=== PATIENT | female | born 1970 | race Caucasian/White ===

== ENCOUNTER 2023-02-28 14:52 | Inpatient (IN) | payer OTHER, SELFPAY ==
[2023-02-28] VITALS (9 sets, daily range): BP systolic 87–139; BP diastolic 47–96; PULSE 39–49; RESP 16–18; TEMP 36.4–36.9; O2SAT 97–100; BMI 27.3; BMI 28.0
--- NOTE | 2023-02-28 15:10 | EKG12_ITS ---
Test Reason : LOW HR Blood Pressure : / mmHG Vent. Rate : 043 BPM Atrial Rate : 043 BPM P-R Int : 144 ms QRS Dur : 076 ms QT Int : 430 ms P-R-T Axes : 041 038 037 degrees QTc Int : 363 ms Marked sinus bradycardia Abnormal ECG Confirmed by CANDELARIA JOLLEY MD ([id number]), features editor BRIGITTE TATE ([id number]) on 03/02/2023 9:29:48 AM Referred By: DARA Confirmed By:CANDELARIA JOLLEY MD
--- NOTE | 2023-02-28 15:20 | ED.VIS.CHEST ---
HPI History of Present Illness Chief Complaint: Dizziness Narrative Narrative: 53-year-old female presenting with lightheadedness/dizziness, near syncope. She states that this started on Sunday. The episodes of had been intermittent. She also complains of some back pain between her shoulder blades that radiates into her face and neck area. She states this is also been coming and going. Today she states that all of the symptoms have been more constant and she has some a feeling of indigestion as well. No fevers or chills. Mild nausea without vomiting. She states she has a history of high cholesterol about a year ago but this was never followed. She does not report any cardiac history. She states is not on any chronic medications. PFSH PFS Medical History no medical history Home Medications sulfamethoxazole 800 mg-trimethoprim 160 mg tablet 1 tab PO BID ##20 08/12/16 [Rx Last Taken Unknown] Allergy/AdvReac Type Severity Reaction Status Date / Time No Known Allergies Allergy Verified 02/28/23 15:00 Social History Smoking Status: Never smoker ROS ROS ED Review of Systems ROS Unobtainable: Denies due to encephalopathy Constitutional Constitutional ED: Denies chills or fever(s) Eyes Eyes: Reports none ENT ENT ED: Denies rhinorrhea or sore throat Cardiovascular Cardiovascular: Reports as per HPI Respiratory/Chest Respiratory/Chest: Reports dyspnea and dyspnea on exertion; Denies cough Gastrointestinal Gastrointestinal: Reports nausea; Denies abdominal pain Genitourinary Genitourinary ED: Denies dysuria or hematuria Musculoskeletal Musculoskeletal: Denies arthralgias Integumentary Denies abscess or Abrasions Neurologic Neurologic: Denies headache(s) Psychiatric Psychiatric: Denies anxiety or depression EXAM Physical Exam Const Vital Signs: 02/28/23 14:55 02/28/23 15:33 02/28/23 15:36 Temperature 98.5 F Temperature Source Temporal Pulse Rate 44 L 40 L Pulse Rate [Lying] Pulse Rate [Sitting (for 1 minute prior to obtaining)] Pulse Rate [Standing (for 1 minute prior to obtaining)] Respiratory Rate 16 16 Respiratory Effort Respiratory Pattern Blood Pressure 87/47 L 97/57 L Blood Pressure [Lying] Blood Pressure [Sitting (for 1 minute prior to obtaining)] Blood Pressure [Standing (for 1 minute prior to obtaining)] Blood Pressure Mean 60 70 Blood Pressure Mean [Lying] Blood Pressure Mean [Sitting (for 1 minute prior to obtaining)] Blood Pressure Mean [Standing (for 1 minute prior to obtaining)] Pulse Ox 98 98 97 Oxygen Delivery Method Room Air Room Air Room Air 02/28/23 15:37 02/28/23 17:04 02/28/23 17:12 Temperature Temperature Source Pulse Rate 40 L Pulse Rate [Lying] 39 L Pulse Rate [Sitting (for 1 minute prior to obtaining)] 41 L Pulse Rate [Standing (for 1 minute prior to obtaining)] 40 L Respiratory Rate 16 Respiratory Effort Normal Non-Labored Respiratory Pattern Normal Blood Pressure 94/60 Blood Pressure [Lying] 96/57 L Blood Pressure [Sitting (for 1 minute prior to obtaining)] 110/65 Blood Pressure [Standing (for 1 minute prior to obtaining)] 115/63 Blood Pressure Mean 71 Blood Pressure Mean [Lying] 70 Blood Pressure Mean [Sitting (for 1 minute prior to obtaining)] 80 Blood Pressure Mean [Standing (for 1 minute prior to obtaining)] 80 Pulse Ox 99 Oxygen Delivery Method Room Air General Appearance ED: NAD; Negative for pallor HEENT Reports moist mucous membranes normocephalic and atraumatic Eyes PERRL and EOMs intact bilaterally Neck no lymphadenopathy and supple Resp normal respiratory effort and clear to auscultation bilaterally Auscultation: Negative for rales, rhonchi or wheezes Cardio regular rhythm Rate: bradycardia GI normal to inspection, nondistended, normoactive bowel sounds Extremity normal to inspection General Extremety ED: Negative for edema General Extremity: Negative for edema Neuro oriented x3 and CN's II-XII intact bilaterally Sensorium / Orientation: awake and alert Psych mental status grossly normal Skin no rashes or lesions noted General Skin Exam: Negative for jaundice or pallor Heart Score History: Moderately Suspicious ECG: Normal Age: >45 - <65 years Risk Factors: 1 or 2 Risk Factors Score: 3 MDM MDM MDM Narrative Medical decision making narrative: Patient presenting with what sounds like atypical chest pain as well as bradycardia and hypotension. This has been going on since Sunday. She has the sensation that she is going to faint. On arrival her heart rate was 44. EKG on my interpretation shows a sinus bradycardia. No ST elevation or depression. Is also having severe pain between her shoulder blades as well as pressure up to her jaw. Differential includes ACS, pneumonia, pericardial effusion, electrolyte abnormalities, dehydration, orthostatic hypotension, aortic dissection. CBC to assess white blood cell count, hemoglobin, platelets, differential. BMP to assess renal function, electrolytes, glucose, anion gap. High-sensitivity troponin delta troponin were ordered. CBC and BMP essentially unremarkable there are some mild prerenal azotemia. High-sensitivity troponin is 4. Chest x-ray on my interpretation shows no acute cardiopulmonary process. Radiologist interprets this and agree. I did obtain orthostatic vital signs and these are normal however I have been in the room several times and her blood pressure is sometimes in the 120 systolic and sometimes is in the 80s systolic. Heart rate has been pretty persistently low. The last check she was 38. I did discuss with her a CT of the chest abdomen pelvis to rule out other pathology. She was amenable. I obtained this and this is negative for acute findings. I spoke with Dr. Ivy and reviewed the EKG with him. He recommended admission for at least an echocardiogram. Patient is amenable to this. Delta troponin came back at 5. This is only changed by 1. Patient was amenable to staying in the hospital. Discussed with hospitalist for admission. Impression: 1. Hypotension 2. Bradycardia 3. Atypical chest pain Lab Data Attestation: I reviewed the patient's lab results. Labs: Laboratory Results - last 24 hr 02/28/23 02/28/23 02/28/23 15:20 15:20 17:35 WBC 6.5 RBC 4.13 L Hgb 12.0 Hct 37.0 MCV 89.6 MCH 29.1 MCHC 32.4 RDW Std Deviation 42.0 RDW Coeff of Derek 12.9 Plt Count 231 MPV 11.6 Immature Gran % (Auto) 0.200 Neut % (Auto) 68.3 Lymph % (Auto) 22.4 [place] % (Auto) 7.1 Eos % (Auto) 1.5 Baso % (Auto) 0.5 Absolute Neuts (auto) 4.5 Absolute Lymphs (auto) 1.46 Nucleated RBC % 0 Sodium 139 Potassium 3.9 Chloride 106 Carbon Dioxide 28.0 Anion Gap 5 BUN 22 H Creatinine 0.84 Estim Creat Clear Calc 67.65 Est GFR (MDRD) Af Amer 91 Est GFR (MDRD) Non-Af 75 BUN/Creatinine Ratio 26.1 H Glucose 101 Calcium 8.9 Troponin I High Sens 4 5 Radiography Diagnostic Testing: Clinical Impression(s) from Imaging Studies Chest X-Ray 02/28/23 15:45 IMPRESSION: Normal x-ray examination of the chest. Electronically Signed: Shahid Chowdhury DO at 16:47 EDT Reading Location ID and State: [address] [place] [address] Tel [phone], Service support , Chest/Abdomen/Pelvis CTA 02/28/23 16:06 IMPRESSION: 1. No evidence of aortic dissection aneurysm or stricture. 2. No acute cardiopulmonary disease. 3. Hepatomegaly with fatty infiltration. 4. Otherwise normal CT of the abdomen and pelvis. Normal contrast-enhanced CT of the chest. Normal contrast-enhanced CT of the abdomen and pelvis. Electronically Signed: Shahid Chowdhury DO at 16:52 EDT Reading Location ID and State: [address] [place] [address] Tel [phone], Service support , Discharge Plan Triage Chief Complaint: Dizziness Other Complaint: Numb/Ting ED Provider: Ramiro Gomez Dx/Rx/DC Orders Prescriptions: No Action sulfamethoxazole-trimethoprim 1 TABLET tablet 1 tab PO BID Qty: 20 0RF Primary Care Provider: Taina Zimmerman Referrals: Taina Zimmerman DO [Primary Care Provider] -
[2023-02-28 15:30] LABS: Absolute Lymphocyte Count 1.46 X10^3/uL (0.83-4.51); Absolute Neutrophil Count 4.5 X10^3/uL (2.0-7.7); Basophil# 0.03 X10^3/uL; Basophil% 0.5 % (0-1); Eosinophils% 1.5 % (0-5); Lymphocyte # 1.46 X10^3/ul (0.83-4.51); Lymphocyte % 22.4 % (19-41); Mean Corp Hgb Conc 32.4 g/dL (32-36); Mean Corpuscular Hgb 29.1 pg (27.0-32.0); Mean Corpuscular Volume 89.6 fL (81-99); Mean Platelet Vol. 11.6 fl (6.2-12.0); Monocyte# 0.46 X10^3/uL; Monocyte% 7.1 % (0-10); NRBC Flagged by Analyzer 0 % (0-5); Neutrophil # 4.45 X10^3/uL (2.7-7.7); Neutrophil % 68.3 % (47-70); Platelet Count 231 K/mm3 (150-450); RBC Distribution Width CV 12.9 % (11.6-14.6); Red Blood Count 4.13 M/mm3 (4.2-5.4); White Blood Count 6.5 K/mm3 (4.4-11.0)
[2023-02-28] MEDS: 0.9% Normal Saline 1,000 ML 1000 ML IV ×2 (15:39→17:03)
--- NOTE | 2023-02-28 15:45 | RAD_ITS ---
STUDY: X-RAY CHEST REASON FOR EXAM: Female, 53 years old. Chest pain. TECHNIQUE: Single AP portable view of the chest. COMPARISON: None. FINDINGS: The lungs are clear and expanded. There is no demonstrated pleural abnormality. Normal size heart. Normal mediastinum and shai. Normal visualized pulmonary arteries. Normal visualized aortic arch and descending thoracic aorta. Normal visualized thoracic spine. Normal visualized ribs, clavicles, and shoulders. There is no demonstrated abnormality of the visualized soft tissue structures of the upper abdomen. RAD/Chest 1 View (Portable) IMPRESSION: Normal x-ray examination of the chest. Electronically Signed: Shahid Chowdhury DO at 16:47 EDT ,
[2023-02-28 15:56] LABS: BUN 22 mg/dL (7-18); Creatinine, Serum 0.84 mg/dL (0.55-1.02); EST Glomerular Filtration Rate 75 mL/min (>60); Estimated Creatinine Clearance 67.65 ml/min; Glucose 101 mg/dL (74-106)
[2023-02-28 15:57] LABS: Anion Gap 5 (5-15); BUN/Creat Ratio 26.1 RATIO (10-20); Calcium,Total 8.9 mg/dL (8.5-10.1); Chloride 106 mmol/L (98-107); Est Glom Filt Rate - Afr Amer 91 mL/min (>60); Potassium 3.9 mmol/L (3.5-5.1); Sodium Level 139 mmol/L (136-145); Troponin-I HS (w/2H Reflex) 4 pg/mL (3.0-54.0)
--- NOTE | 2023-02-28 16:06 | CT_ITS ---
INDICATION: Lightheadedness. Dizziness. Pain between shoulder blades intermittently for 3 days. Question aortic dissection. EXAMINATION: CTA CHEST, ABDOMEN AND PELVIS WITH CONTRAST - TECHNIQUE: A CTA of the chest, abdomen, and pelvis is obtained with sagittal and coronal reconstructed MIP views. Three-dimensional surface rendered sequence of the thoracic and abdominal aorta was obtained. A radiation dose optimization technique was used for this scan. 100 mL of Isovue-370. Oral contrast: None. COMPARISON: CT the abdomen and pelvis, August 11, 2016. Chest, February 28, 2023. FINDINGS: CT CHEST: THORACIC AORTA: No atheromatous disease, no aneurysmal changes or dissection. ABDOMINAL AORTA: No aneurysm or dissection. No significant atheromatous disease. The iliac arteries are unremarkable. The intra-abdominal arteries as well as the iliac arteries are unremarkable. LUNGS: The lungs are well-expanded without acute or chronic changes. No effusions or pneumothorax. MEDIASTINUM: The thyroid gland is normal. No mediastinal or hilar adenopathy. Normal pulmonary arteries without evidence of pulmonary embolus. HEART: Heart is normal size. No pericardial effusion. No CAD. CT ABDOMEN AND PELVIS: LIVER: The liver is enlarged and mildly fatty infiltrated. There is no focal mass. GALLBLADDER: The CBD is normal. Normal gallbladder. SPLEEN: Normal. PANCREAS: No masses or inflammation. ADRENAL GLANDS: Normal. KIDNEYS AND URETERS: The kidneys both enhance appropriately. There are normal size and shape. No hydronephrosis or nephrolithiasis. No renal masses or cysts. Normal visualized ureters. STOMACH: Normal. SMALL BOWEL: No abnormal distention of the small bowel. MESENTERY: No mesenteric inflammation. No ascites. COLON: No significant diverticulosis, masses or inflammation. The colon otherwise is normal. There is a large fatty ileocecal valve. APPENDIX: The appendix is visualized and normal. IVC: Normal. RETROPERITONEUM: No retroperitoneal lymphadenopathy. PELVIC STRUCTURES: Normal bladder. Normal uterus and adnexa. No pelvic lymphadenopathy. No free air or free fluid is seen within the peritoneal cavity. SOFT TISSUES ABDOMEN: The anterior abdominal wall is normal. SOFT TISSUE CHEST: The extrathoracic soft tissues are normal. BONES: No fractures or significant degenerative disease. CT/CTA Chst, Abd, Pel W and/or WO IMPRESSION: 1. No evidence of aortic dissection aneurysm or stricture. 2. No acute cardiopulmonary disease. 3. Hepatomegaly with fatty infiltration. 4. Otherwise normal CT of the abdomen and pelvis. Normal contrast-enhanced CT of the chest. Normal contrast-enhanced CT of the abdomen and pelvis. Electronically Signed: Shahid Chowdhury DO at 16:52 EDT Reading Location ID and State: [address] [place] [address] Tel [phone], Service support ,
[2023-02-28 17:24] LABS: Reflex Troponin-HS? (from REC) Y
[2023-02-28 18:09] LABS: Troponin-I HS 5 pg/mL (3.0-54.0)
--- NOTE | 2023-02-28 18:27 | HP.PCM.HOS_ITS ---
HPI - General General Date of Admission: 02/28/23 Date of Service: 02/28/23 Chief Complaint: dizziness, lightheadedness HPI Narrative DANILO SIMMONS, is a 53 F with a PMH as outlined who presents via the ED on 02/28/2023 with a complaint of dizziness. She doesnt really follow up with a PCP. She said she has been having dizziness and back pain between her shoulder blades for 3 days prior to admission. These symptoms have been episodic. She says the pain radiates up into her neck. She denies any chest pain, palpitations, lightheadedness, nausea, vomiting or diarrhea. Review of systems is otherwise negative. Vitals in the ED were BP of 115/63, VT of 41, and was otherwise WNL. CBC and BP were unremarkable. EKG showed sinus bradycardia. She is being admitted to be managed for near syncope likely due to sinus bradycardia, and upper back pain radiating to her neck, which may possibly be an angina equivalent. [facility] Medical History no medical history Home Medications sulfamethoxazole 800 mg-trimethoprim 160 mg tablet 1 tab PO BID ##20 08/12/16 [Rx Last Taken Unknown] Allergy/AdvReac Type Severity Reaction Status Date / Time No Known Allergies Allergy Verified 02/28/23 15:00 Social History Smoking Status: Never smoker ROS Constitutional Constitutional: Reports fatigue, malaise and weakness; Denies anorexia, chills or fever(s) Eyes Eyes: Denies change in vision ENT HEENT: Denies dysphagia or headache(s) Cardiovascular Cardiovascular: Reports lightheadedness; Denies chest pain, dyspnea on exertion, edema, orthopnea, palpitations, paroxysmal nocturnal dyspnea, rapid heart rate or syncope Respiratory/Chest Respiratory/Chest: Denies cough, dyspnea, productive cough or shortness of br eath at rest Gastrointestinal Gastrointestinal: Reports dyspepsia and nausea; Denies abdominal pain, constipation, diarrhea or vomiting Genitourinary Genitourinary: Denies burning urination or dysuria Musculoskeletal Musculoskeletal: Denies arthralgias or back pain Neurologic Neurologic: Denies confusion, dizziness, focal weakness, headache(s) or syncope Psychiatric Psychiatric: Denies anxiety or depression Endocrine Endocrinology: Denies change in body appearance Hematologic/Lymphatic Hematologic/Lymphatic: Denies anemia Vital Signs Vital Signs Vital Signs: 02/28/23 14:55 02/28/23 15:33 02/28/23 15:36 Temperature 98.5 F Temperature Source Temporal Pulse Rate 44 L 40 L Pulse Rate [Lying] Pulse Rate [Sitting (for 1 minute prior to obtaining)] Pulse Rate [Standing (for 1 minute prior to obtaining)] Respiratory Rate 16 16 Respiratory Effort Respiratory Pattern Blood Pressure 87/47 L 97/57 L Blood Pressure [Lying] Blood Pressure [Sitting (for 1 minute prior to obtaining)] Blood Pressure [Standing (for 1 minute prior to obtaining)] Blood Pressure Mean 60 70 Blood Pressure Mean [Lying] Blood Pressure Mean [Sitting (for 1 minute prior to obtaining)] Blood Pressure Mean [Standing (for 1 minute prior to obtaining)] Pulse Ox 98 98 97 Oxygen Delivery Method Room Air Room Air Room Air 02/28/23 15:37 02/28/23 17:04 02/28/23 17:12 Temperature Temperature Source Pulse Rate 40 L Pulse Rate [Lying] 39 L Pulse Rate [Sitting (for 1 minute prior to obtaining)] 41 L Pulse Rate [Standing (for 1 minute prior to obtaining)] 40 L Respiratory Rate 16 Respiratory Effort Normal Non-Labored Respiratory Pattern Normal Blood Pressure 94/60 Blood Pressure [Lying] 96/57 L Blood Pressure [Sitting (for 1 minute prior to obtaining)] 110/65 Blood Pressure [Standing (for 1 minute prior to obtaining)] 115/63 Blood Pressure Mean 71 Blood Pressure Mean [Lying] 70 Blood Pressure Mean [Sitting (for 1 minute prior to obtaining)] 80 Blood Pressure Mean [Standing (for 1 minute prior to obtaining)] 80 Pulse Ox 99 Oxygen Delivery Method Room Air Weight Weight: 159 lb Body Mass Index (BMI) 27.3 Physical Exam Const alert, oriented x3 and no apparent distress General Appearance: cooperative HEENT normocephalic, head/scalp atraumatic, hearing grossly normal bilaterally and moist oral mucous membranes Mouth: oral and palatal mucosa normal Eyes PERRL and EOMs intact bilaterally Neck no lymphadenopathy, supple and no JVD Resp normal respiratory effort, no retractions, no use of accessory muscles and clear to auscultation bilaterally Cardio regular rhythm, S1 normal heart sound and S2 normal heart sound Cardio Narrative: sinus bradycardia GI normal to inspection, nondistended, normoactive bowel sounds, soft to palpation, non-tender and non-distended Extremity normal to inspection, full ROM and no clubbing, cyanosis or edema Neuro oriented x3, moves all extremities and no focal motor deficits Sensorium / Orientation: awake and alert Motor Exam: strength 5/5 throughout Psych affect normal Results Lab / Micro Data Result Diagrams: 02/28/23 15:20 02/28/23 15:20 Labs: Laboratory Results - last 24 hr 02/28/23 15:20: WBC 6.5, RBC 4.13 L, Hgb 12.0, Hct 37.0, MCV 89.6, MCH 29.1, MCHC 32.4, RDW Std Deviation 42.0, RDW Coeff of Derek 12.9, Plt Count 231, MPV 11.6, Immature Gran % (Auto) 0.200, Neut % (Auto) 68.3, Lymph % (Auto) 22.4, [place] % (Auto) 7.1, Eos % (Auto) 1.5, Baso % (Auto) 0.5, Absolute Neuts (auto) 4.5, Absolute Lymphs (auto) 1.46, Nucleated RBC % 0 02/28/23 15:20: Sodium 139, Potassium 3.9, Chloride 106, Carbon Dioxide 28.0, Anion Gap 5, BUN 22 H, Creatinine 0.84, Estim Creat Clear Calc 67.65, Est GFR (MDRD) Af Amer 91, Est GFR (MDRD) Non-Af 75, BUN/Creatinine Ratio 26.1 H, Glucose 101, Calcium 8.9, Troponin I High Sens 4 02/28/23 17:35: Troponin I High Sens 5 Radiology Impression Chest X-Ray 02/28/23 15:45 IMPRESSION: Normal x-ray examination of the chest. Electronically Signed: Shahid Chowdhury DO at 16:47 EDT Reading Location ID and State: [address] [place] [address] Tel [phone], Service support , Chest/Abdomen/Pelvis CTA 02/28/23 16:06 IMPRESSION: 1. No evidence of aortic dissection aneurysm or stricture. 2. No acute cardiopulmonary disease. 3. Hepatomegaly with fatty infiltration. 4. Otherwise normal CT of the abdomen and pelvis. Normal contrast-enhanced CT of the chest. Normal contrast-enhanced CT of the abdomen and pelvis. Electronically Signed: Shahid Chowdhury DO at 16:52 EDT Reading Location ID and State: [address] [place] [address] Tel [phone], Service support , Assessment & Plan Assessment/Plan (1) Anginal equivalent: (2) Bradycardia: PLAN: Plan #Sinus bradycardia * admitted with complaint of lightheadedness and dizziness as well as pain in b etween her shoulder blades, radiating up into her neck * Denies any history of heart disease. She does have a history of high cholesterol diagnosed in physical she had last year. She does not usually follow with a PCP. * Heart rate went as low as 39 in the ED. Heart rate was 41 at time of review. * Admit to PCU * Cycle troponins. Initial troponin was negative. 2D echo ordered for tomorrow. * I do think the pain in between her shoulder blades and radiating up to her neck qualifies as an angina equivalent. We will therefore consult cardiology to determine whether she would benefit from a stress test or would proceed to a cardiac cath in light of her angina equivalent and new onset bradycardia. * Hydrate gently with IV fluids. * Check lipid panel * * #Upper back pain likely angina equivalent * Back pain as described above. Initial troponin x2 negative. We will cycle. * P.o. aspirin 81 mg daily. Sublingual nitroglycerin as needed * #Hypotension: * Blood pressure was down in the 80s systolic when she came into the ED but it responded to fluids. * Orthostatics were negative. We will continue gentle hydration with IV fluids and monitor. * Not on any blood pressure medications. * DVT prophylaxis: Lovenox Charges/Coding Visit Charges Inpatient E&M: 74488 Init Hosp L3
[2023-02-28] MEDS: 0.9% Normal Saline 1,000 ML 125 ML IV (20:32)
[2023-02-28] MEDS: 0.9% Saline Lock 10 ML Syringe IV (20:32)
[2023-03-01 02:01] VITALS: PULSE 55
[2023-03-01] MEDS: 0.9% Normal Saline 1,000 ML 125 ML IV (04:27)
[2023-03-01 04:40] VITALS: BP 143/85; PULSE 47; RESP 18; TEMP 36.6; O2SAT 100
[2023-03-01 05:05] LABS: Absolute Lymphocyte Count 1.54 X10^3/uL (0.83-4.51); Absolute Neutrophil Count 1.9 X10^3/uL (2.0-7.7); Basophil# 0.02 X10^3/uL; Basophil% 0.5 % (0-1); Eosinophil# 0.12 X10^3/uL; Eosinophils% 3.1 % (0-5); Hematocrit 36.5 % (37-47); Hemoglobin 11.5 g/dL (12.0-15.0); Lymphocyte # 1.54 X10^3/ul (0.83-4.51); Lymphocyte % 39.2 % (19-41); Mean Corp Hgb Conc 31.5 g/dL (32-36); Mean Corpuscular Hgb 28.7 pg (27.0-32.0); Mean Platelet Vol. 11.8 fl (6.2-12.0); Monocyte# 0.36 X10^3/uL; Monocyte% 9.2 % (0-10); NRBC Flagged by Analyzer 0 % (0-5); Neutrophil # 1.89 X10^3/uL (2.7-7.7); Platelet Count 202 K/mm3 (150-450); RBC Distribution Width CV 13.2 % (11.6-14.6); RBC Distribution Width SD 43.8 fl (35.1-43.9); Red Blood Count 4.01 M/mm3 (4.2-5.4); White Blood Count 3.9 K/mm3 (4.4-11.0)
[2023-03-01 05:33] LABS: Anion Gap 5 (5-15); BUN 17 mg/dL (7-18); Calcium,Total 7.7 mg/dL (8.5-10.1); Chloride 115 mmol/L (98-107); Creatinine, Serum 0.68 mg/dL (0.55-1.02); EST Glomerular Filtration Rate 96 mL/min (>60); Est Glom Filt Rate - Afr Amer 117 mL/min (>60); Estimated Creatinine Clearance 83.57 ml/min; Glucose 108 mg/dL (74-106); Potassium 3.6 mmol/L (3.5-5.1); Sodium Level 144 mmol/L (136-145); Thyroid Stim Hormone (TSH) 9.54 uIU/mL (0.358-3.74)
--- NOTE | 2023-03-01 05:55 | ECHOD_ITS ---
Reason For Study: Bradycardia Procedure This was a 2D Doppler, Color Flow transthoracic echocardiogram. Exam performed portable in patient room. Left Ventricle Normal left ventricle. The estimated ejection fraction is 55-60 %. Right Ventricle Normal right ventricle. Normal systolic function. Atria Normal left atrium. Normal right atrium. Mitral Valve There is mild mitral annular calcification. Mild (1+) mitral valve insufficiency. Tricuspid Valve Normal tricuspid valve. Mild tricuspid valve insufficiency. Aortic Valve Normal aortic valve. Pulmonic Valve The pulmonic valve is not well visualized. Great Vessels Normal aortic root. Pericardium/Pleural No pericardial effusion. MMode/2D Measurements & Calculations LVIDd: 4.8 cm IVSd: 0.75 cm LA dimension: 3.5 cm LVIDs: 3.4 cm LVPWd: 0.62 cm RVDd: 3.2 cm FS: 28.9 % LAV(MOD-bp): 54.9 ml LA A4 area: 19.0 cm2 RA A4 area: 14.6 cm2 LAV(MOD-bp) Indexed: 30.6 ml/m2 LAV(MOD-sp2): 54.9 ml LAV(MOD-sp4): 52.3 ml Time Measurements MV dec time: 0.16 sec Doppler Measurements & Calculations MV E max brodie: 91.6 cm/sec Lat Peak E' Brodie: 16.7 cm/sec Med Peak E' Brodie: 13.5 cm/sec MV A max brodie: 84.1 cm/sec E/E' lat: 5.5 E/E' med: 6.8 MV E/A: 1.1 MV V2 max: 120.4 cm/sec MV P1/2t max brodie: 122.4 cm/sec Ao V2 max: 115.3 cm/sec MV max P.8 mmHg MV P1/2t: 64.5 msec Ao max P.3 mmHg MV V2 mean: 62.4 cm/sec MV dec slope: 555.6 cm/sec2 Ao V2 mean: 79.5 cm/sec MV mean P.9 mmHg MVA(P1/2t): 3.4 cm2 Ao mean P.9 mmHg MV V2 VTI: 26.6 cm Ao V2 VTI: 29.6 cm AV (velocity ratio): 0.93 LV V1 max: 107.3 cm/sec PA V2 max: 107.1 cm/sec TR max brodie: 293.0 cm/sec LV V1 max P.6 mmHg TR max P.3 mmHg LV V1 mean P.6 mmHg LV V1 mean: 75.0 cm/sec LV V1 VTI: 27.5 cm ECHO/Echo Complete Interpretation Summary The estimated ejection fraction is 55-60 %. Normal LV systolic function No previous echo to compare Ordering Physician: Maria Elena Guthrie Referring Physician: Taina Zimmerman M.D. Performed By: Seth Obrien RCS
--- NOTE | 2023-03-01 08:02 | PCM.PN.HOSP ---
Subjective Subjective Feeling better. Objective Data Objective Data Vital Signs: Vital Signs Temp Pulse Resp BP Pulse Ox O2 Del Method 36.6 C 47 L 18 143/85 H 100 Room Air 03/01/23 04:40 03/01/23 04:40 03/01/23 04:40 03/01/23 04:40 03/01/23 04:40 03/01/23 04:40 Oxygen Delivery Method Room Air Weight: 74.2 kg Body Mass Index (BMI) 28.0 Intake & Output: Intake and Output for Last 24 Hours 02/27/23 02/28/23 03/01/23 23:59 23:59 23:59 Intake Total 1999 989.58 / 989.58 Balance 1999 989.58 / 989.58 Lab / Micro Data Result Diagrams: 03/01/23 04:30 03/01/23 04:30 Labs: Laboratory Results - last 24 hr 02/28/23 15:20: WBC 6.5, RBC 4.13 L, Hgb 12.0, Hct 37.0, MCV 89.6, MCH 29.1, MCHC 32.4, RDW Std Deviation 42.0, RDW Coeff of Derek 12.9, Plt Count 231, MPV 11.6, Immature Gran % (Auto) 0.200, Neut % (Auto) 68.3, Lymph % (Auto) 22.4, [place] % (Auto) 7.1, Eos % (Auto) 1.5, Baso % (Auto) 0.5, Absolute Neuts (auto) 4.5, Absolute Lymphs (auto) 1.46, Nucleated RBC % 0 02/28/23 15:20: Sodium 139, Potassium 3.9, Chloride 106, Carbon Dioxide 28.0, Anion Gap 5, BUN 22 H, Creatinine 0.84, Estim Creat Clear Calc 67.65, Est GFR (MDRD) Af Amer 91, Est GFR (MDRD) Non-Af 75, BUN/Creatinine Ratio 26.1 H, Glucose 101, Calcium 8.9, Troponin I High Sens 4 02/28/23 17:35: Troponin I High Sens 5 03/01/23 04:30: WBC 3.9 L, RBC 4.01 L, Hgb 11.5 L, Hct 36.5 L, MCV 91.0, MCH 28.7, MCHC 31.5 L, RDW Std Deviation 43.8, RDW Coeff of Derek 13.2, Plt Count 202, MPV 11.8, Immature Gran % (Auto) 0.000, Neut % (Auto) 48.0, Lymph % (Auto) 39.2, [place] % (Auto) 9.2, Eos % (Auto) 3.1, Baso % (Auto) 0.5, Absolute Neuts (auto) 1.9 L, Absolute Lymphs (auto) 1.54, Nucleated RBC % 0 03/01/23 04:30: Sodium 144, Potassium 3.6, Chloride 115 H, Carbon Dioxide 24.0, Anion Gap 5, BUN 17, Creatinine 0.68, Estim Creat Clear Calc 83.57, Est GFR (MDRD) Af Amer 117, Est GFR (MDRD) Non-Af 96, BUN/Creatinine Ratio 25.0 H, Glucose 108 H, Calcium 7.7 L, TSH 9.54 H Radiography Diagnostic Testing: Radiology Impression Chest X-Ray 02/28/23 15:45 IMPRESSION: Normal x-ray examination of the chest. Electronically Signed: Shahid Chowdhury DO at 16:47 EDT Reading Location ID and State: [employer] / [place] Tel [phone], Service support , Chest/Abdomen/Pelvis CTA 02/28/23 16:06 IMPRESSION: 1. No evidence of aortic dissection aneurysm or stricture. 2. No acute cardiopulmonary disease. 3. Hepatomegaly with fatty infiltration. 4. Otherwise normal CT of the abdomen and pelvis. Normal contrast-enhanced CT of the chest. Normal contrast-enhanced CT of the abdomen and pelvis. Electronically Signed: Shahid Chowdhury DO at 16:52 EDT Reading Location ID and State: [employer] / [employer] Tel [phone], Service support , Physical Exam Const alert and no apparent distress HEENT head/scalp atraumatic, moist oral mucous membranes, oropharynx normal and dentition normal Resp normal respiratory effort, no retractions, no use of accessory muscles and clear to auscultation bilaterally Cardio regular rate, regular rhythm, S1 normal heart sound and S2 normal heart sound GI normal to inspection, nondistended, normoactive bowel sounds, soft to palpation, non-tender, non-distended and hepatosplenomegaly Extremity normal to inspection Assessment & Plan Assessment/Plan (1) Bradycardia: PLAN: Sinus bradycardia HR in 30s to 40s reviewed medication--no chronotropic medications (2) Anginal equivalent: PLAN: Upper back pain concern for anginal equivalent Troponins negative P.o. aspirin 81 mg daily. Sublingual nitroglycerin as needed Echo ordered (3) Hypotension: PLAN: Resolved Blood pressure was down in the 80s systolic when she came into the ED but it responded to fluids. Orthostatics were negative. We will continue gentle hydration with IV fluids and monitor. Not on any blood pressure medications. (4) High thyroid stimulating hormone (TSH) level: PLAN: 9.54. Free T4 was 1 and free T3 was 3. Those are within normal limits. Patient takes an ysdx-fwc-awbvdao thyroid medication which apparently has bovine thyroid hormone. She has not taken it for some time. I would not recommend any treatment for hypothyroidism at this time. PLAN: Plan DVT prophylaxis: Lovenox Charges/Coding Visit Charges Inpatient E&M: 47463 Subs Hosp L2
--- NOTE | 2023-03-01 09:30 | PCM.CONS.C ---
Documented by User: Heide TREJO, MAYA 03/01/23 09:54 Assessment & Plan Assessment/Plan (1) Bradycardia: (2) Hypotension: (3) Anginal equivalent: PLAN: Plan Patient's CTA was negative. There is no coronary calcifications noted on her CTA. Troponins were also negative x2. Patient's TSH is 9.75 today. This could be contributing to her bradycardia. Echocardiogram is pending. As long as echocardiogram is normal, recommend that she follow-up on an outpatient basis. Would recommend doing a stress test and event monitor on an outpatient basis. HPI Consult Data Date of Consult: 03/01/23 HPI Narrative HPI Narrative: DANILO SIMMONS, is a 53 F who presented to [facility] ED for dizziness, bradycardia, near syncope, back pain and back pain between her shoulder blades for 3 days prior to admission. These symptoms have been episodic. She says the pain radiates up into her neck. She denies any chest pain, palpitations, lightheadedness, nausea, vomiting or diarrhea. Chest CTA negative. Troponin negative x2. She does feel better this morning. TSH this morning is 9.75. Patient does note that she has had a sinus infection for the past 4 months that has recently cleared. She did question if she had COVID however COVID test was negative. [facility] Medical History no medical history Allergy/AdvReac Type Severity Reaction Status Date / Time No Known Allergies Allergy Verified 02/28/23 15:00 Social History Smoking Status: Never smoker ROS ROS Narrative ROS negative except what is noted in HPI Physical Exam Const alert, oriented x3 and no apparent distress General Appearance: cooperative HEENT normocephalic, head/scalp atraumatic, hearing grossly normal bilaterally and moist oral mucous membranes Mouth: oral and palatal mucosa normal Eyes PERRL and EOMs intact bilaterally Neck no lymphadenopathy, supple and no JVD Resp normal respiratory effort, no retractions, no use of accessory muscles and clear to auscultation bilaterally Cardio regular rhythm, S1 normal heart sound and S2 normal heart sound Cardio Narrative: sinus bradycardia GI normal to inspection, nondistended, normoactive bowel sounds, soft to palpation, non-tender and non-distended Extremity normal to inspection, full ROM and no clubbing, cyanosis or edema Neuro oriented x3, moves all extremities and no focal motor deficits Sensorium / Orientation: awake and alert Motor Exam: strength 5/5 throughout Psych affect normal Risk Stratification Risk Stratification Applicable: No Charges/Coding Visit Charges Office Visits / Consults: 27775 IP Consult L3 Objective Data Vital Signs: Vital Signs Temp Pulse Resp BP Pulse Ox O2 Del Method 97.8 F 47 L 18 143/85 H 100 Room Air 03/01/23 04:40 03/01/23 04:40 03/01/23 04:40 03/01/23 04:40 03/01/23 04:40 03/01/23 04:40 Oxygen Delivery Method Room Air Weight: 163 lb 9.328 oz Body Mass Index (BMI) 28.0 Intake & Output: Intake and Output for Last 24 Hours 02/27/23 02/28/23 03/01/23 23:59 23:59 23:59 Intake Total 1999 989.58 / 989.58 Balance 1999 989.58 / 989.58 Lab / Micro Data Result Diagrams: 03/01/23 04:30 03/01/23 04:30 Labs: Laboratory Results - last 24 hr 02/28/23 15:20: WBC 6.5, RBC 4.13 L, Hgb 12.0, Hct 37.0, MCV 89.6, MCH 29.1, MCHC 32.4, RDW Std Deviation 42.0, RDW Coeff of Derek 12.9, Plt Count 231, MPV 11.6, Immature Gran % (Auto) 0.200, Neut % (Auto) 68.3, Lymph % (Auto) 22.4, [place] % (Auto) 7.1, Eos % (Auto) 1.5, Baso % (Auto) 0.5, Absolute Neuts (auto) 4.5, Absolute Lymphs (auto) 1.46, Nucleated RBC % 0 02/28/23 15:20: Sodium 139, Potassium 3.9, Chloride 106, Carbon Dioxide 28.0, Anion Gap 5, BUN 22 H, Creatinine 0.84, Estim Creat Clear Calc 67.65, Est GFR (MDRD) Af Amer 91, Est GFR (MDRD) Non-Af 75, BUN/Creatinine Ratio 26.1 H, Glucose 101, Calcium 8.9, Troponin I High Sens 4 02/28/23 17:35: Troponin I High Sens 5 03/01/23 04:30: WBC 3.9 L, RBC 4.01 L, Hgb 11.5 L, Hct 36.5 L, MCV 91.0, MCH 28.7, MCHC 31.5 L, RDW Std Deviation 43.8, RDW Coeff of Derek 13.2, Plt Count 202, MPV 11.8, Immature Gran % (Auto) 0.000, Neut % (Auto) 48.0, Lymph % (Auto) 39.2, [place] % (Auto) 9.2, Eos % (Auto) 3.1, Baso % (Auto) 0.5, Absolute Neuts (auto) 1.9 L, Absolute Lymphs (auto) 1.54, Nucleated RBC % 0 03/01/23 04:30: Sodium 144, Potassium 3.6, Chloride 115 H, Carbon Dioxide 24.0, Anion Gap 5, BUN 17, Creatinine 0.68, Estim Creat Clear Calc 83.57, Est GFR (MDRD) Af Amer 117, Est GFR (MDRD) Non-Af 96, BUN/Creatinine Ratio 25.0 H, Glucose 108 H, Calcium 7.7 L, TSH 9.54 H Cardiology Labs/Tests 02/28/23 15:20: WBC 6.5, RBC 4.13 L, Hgb 12.0, Hct 37.0, MCV 89.6, MCH 29.1, MCHC 32.4, Plt Count 231, MPV 11.6, Immature Gran % (Auto) 0.200, Neut % (Auto) 68.3, Lymph % (Auto) 22.4, [place] % (Auto) 7.1, Eos % (Auto) 1.5, Baso % (Auto) 0.5, Absolute Neuts (auto) 4.5, Nucleated RBC % 0 02/28/23 15:20: Sodium 139, Potassium 3.9, Chloride 106, Carbon Dioxide 28.0, Anion Gap 5, BUN 22 H, Creatinine 0.84, Est GFR (MDRD) Af Amer 91, Est GFR (MDRD) Non-Af 75, BUN/Creatinine Ratio 26.1 H, Glucose 101, Calcium 8.9 03/01/23 04:30: WBC 3.9 L, RBC 4.01 L, Hgb 11.5 L, Hct 36.5 L, MCV 91.0, MCH 28.7, MCHC 31.5 L, Plt Count 202, MPV 11.8, Immature Gran % (Auto) 0.000, Neut % (Auto) 48.0, Lymph % (Auto) 39.2, [place] % (Auto) 9.2, Eos % (Auto) 3.1, Baso % (Auto) 0.5, Absolute Neuts (auto) 1.9 L, Nucleated RBC % 0 03/01/23 04:30: Sodium 144, Potassium 3.6, Chloride 115 H, Carbon Dioxide 24.0, Anion Gap 5, BUN 17, Creatinine 0.68, Est GFR (MDRD) Af Amer 117, Est GFR (MDRD) Non-Af 96, BUN/Creatinine Ratio 25.0 H, Glucose 108 H, Calcium 7.7 L ECHO: Pending Radiography Diagnostic Testing: Radiology Impression Chest X-Ray 02/28/23 15:45 IMPRESSION: Normal x-ray examination of the chest. Electronically Signed: Shahid Chowdhury DO at 16:47 EDT Reading Location ID and State: [facility] / [place] Tel [phone], Service support , Chest/Abdomen/Pelvis CTA 02/28/23 16:06 IMPRESSION: 1. No evidence of aortic dissection aneurysm or stricture. 2. No acute cardiopulmonary disease. 3. Hepatomegaly with fatty infiltration. 4. Otherwise normal CT of the abdomen and pelvis. Normal contrast-enhanced CT of the chest. Normal contrast-enhanced CT of the abdomen and pelvis. Electronically Signed: Shahid Chowdhury DO at 16:52 EDT Reading Location ID and State: [facility] / [place] Tel [phone], Service support , Documented by User: Dr. Jesu Ivy MD 03/01/23 15:55 Assessment & Plan Assessment/Plan (1) Bradycardia: (2) Hypotension: (3) Anginal equivalent: PLAN: Plan Patient's CTA was negative. There is no coronary calcifications noted on her CTA. Troponins were also negative x2. Patient's TSH is 9.75 today. This could be contributing to her bradycardia. Echocardiogram is pending. As long as echocardiogram is normal, recommend that she follow-up on an outpatient basis. Would recommend doing a stress test and event monitor on an outpatient basis. I examined this patient at bedside today along with the nursing staff, at bedside at time of evaluation I reviewed the cardiac evaluation here in the hospital including the EKG satellite project site monitor, imaging studies and I agree with the current cardiac care plan recommendation as per midlevel documentation Sinus bradycardia could be related to hypothyroidism I will defer to the medical team for management. We will follow-up the patient as an outpatient, at [facility] Patient stable clinically no further episodes of discomfort in the chest or the back noted. HPI Consult Data Date of Consult: 03/01/23 PFSH Medical History no medical history Allergy/AdvReac Type Severity Reaction Status Date / Time No Known Allergies Allergy Verified 02/28/23 15:00 Social History Smoking Status: Never smoker Lab / Micro Data Result Diagrams: 03/01/23 04:30 03/01/23 04:30
[2023-03-01 09:45] VITALS: BP 147/82; PULSE 52; RESP 18; TEMP 36.2; O2SAT 100
[2023-03-01] MEDS: Enoxaparin 40 MG/0.4 ML Syringe SC (09:48)
[2023-03-01 10:03] LABS: T4 Free Direct 1.04 ng/dL (0.76-1.46)
--- NOTE | 2023-03-01 10:35 | CASEMGMT ---
RN?CM?CUSTODIAN BLOOD BANK?CM?to room to meet with patient for initial transition planning/care coordination?assessment.?RN?CM?introduced self and role at [facility].? Pt voices understanding and consents to?assessment?at this time.? Pt resting in bed in no distress at this time.? @ bedside. Pt is A/O at this time and answers all questions appropriately.?? Care providers, pharmacy, and demographics verified/updated at this time. PCP: Dr Zimmerman Specialists: none Preferred Pharmacy: [facility] Retail Insurance: [employer] Prescription Benefit:?Pt states thinks she has Rx benefits. Living Will/HPOA:?Pt does not currently have LW/HCPOA and would like to complete. Tanja TORO, made aware. Pt made aware, if SW unavailable to meet w/her prior to d/c, that AD can be completed as an OP. LNOK: [place] Living Arrangements: Lives w/ and 2 adult children in 2-story home. Independent. Transportation:?Pt states drives self and states no transportation concerns at this time.? also drives. DME: ? Denies using any DME and denies needs.? HHC/SNF: No hx of either. No needs identified. Pt wishes to return home and states has no concerns with going home at time of discharge.? CM?to follow for any discharge planning/needs.? Pt voices no further concerns/needs at this time.? Advised pt to ask for?CM?if any further questions/concerns/needs arise.? Voices understanding. PLAN:??Home Jovani RICON?RN?CM
--- NOTE | 2023-03-01 14:18 | DCINST_ITS ---
Discharge Instructions Diet Discharge Diet: No restrictions Dressing / Incision Call your doctor if you observe: Dizziness and Fainting spells Follow Up Care Test Results: Test results from this visit will be discussed in further detail at your follow- up appointment, if applicable. Discharge Plan Admission Admit Date/Time: 02/28/23 19:07 Primary Reason for Your Visit: bradycardia Attending Provider: Long Brush Primary Care Provider: Taina Zimmerman Consulting Providers: Jesu Ivy ; Maria Elena Guthrie Instructions Additional Instructions / Restrictions: You had a low heart rate. It did get better without treatment. Also, no evidence of a heart attack. You TSH was elevated, but your thyroid hormones (Free T4 and free T3) were normal. You do not need treatment for your thyroid at this time. Please return to the ED if you have recurrent dizziness, fainting spells. Please follow up with cardiology for further cardiac testing. Discharge Orders/Prescriptions Referrals / Follow Up: [facility] [Provider Group] - Within 2 Weeks Taina Zimmerman DO [Primary Care Provider] - Within 2 Weeks Disposition Disposition (needs filled in before D/C Order can be placed): Home, Self Care
--- NOTE | 2023-03-01 14:22 | PCM.DC.SUM ---
Providers Date of Admission: 02/28/23 Primary Care Physician: Dr. Taina Zimmerman, Consultations 02/28/23 19:36 Consult: Cardiology Routine Consulting Provider: Jesu Ivy Reason for Consult: bradycardia EMERGENT Consult: Yes MD Notified: Yes Date Notified: 02/28/23 Time Notified: 19:09 Method of Notification: Text Reason For Visit: BRADYCARDIA, ANGINA EQUIVVALENT Diagnosis Discharge Diagnosis (1) Bradycardia: Status: Acute Code(s): R00.1 - Bradycardia, unspecified Plan: Sinus bradycardia HR in 30s to 40s reviewed medication--no chronotropic medications (2) Anginal equivalent: Status: Acute Code(s): I20.8 - Other forms of angina pectoris Plan: Upper back pain concern for anginal equivalent Troponins negative P.o. aspirin 81 mg daily. Sublingual nitroglycerin as needed Echo ordered (3) Hypotension: Status: Acute Code(s): I95.9 - Hypotension, unspecified Plan: Resolved Blood pressure was down in the 80s systolic when she came into the ED but it responded to fluids. Orthostatics were negative. We will continue gentle hydration with IV fluids and monitor. Not on any blood pressure medications. (4) High thyroid stimulating hormone (TSH) level: Status: Acute Code(s): R79.89 - Other specified abnormal findings of blood chemistry Plan: 9.54. Free T4 was 1 and free T3 was 3. Those are within normal limits. Patient takes an qpav-gfw-knxpaud thyroid medication which apparently has bovine thyroid hormone. She has not taken it for some time. I would not recommend any treatment for hypothyroidism at this time. Plan DVT prophylaxis: [facility] Hospital Course Operations None Procedures 2-D Echocardiogram Summary of Care Provided Minutes Spent on Discharge: 35 Hospital Course: 53-year-old female presents with dizziness. Patient was planing of some pain in her posterior shoulder for the preceding few days. Patient was found to be bradycardic into the 40s but actually went down into the 30s. Patient did have serial troponins that were all negative. An echocardiogram showed normal ejection fraction of around 55%. And patient's heart rate did improve into the 50s and 60s and patient otherwise is felt fine. Patient was seen by cardiology and patient did not have a myocardial infarction and they have recommended outpatient cardiac testing. Patient takes no medications other than some qfal-cfy-rgdxkbb thyroid medication which she has not taken recently. So nothing to be a reason for her bradycardia from medication standpoint. Unclear if this was more of a vagal event causing her her to have bradycardia. I did offer the patient an opportunity to stay in the hospital longer to be observed but since she is feeling better she would prefer to go home which I feel is reasonable. Patient though advised to return if she has recurrent symptoms of dizziness lightheadedness passing out or near passing out. Patient was taking ouzp-knc-mrkgfto thyroid medication which she has not taken recently. Still with the medication and looks like it has bovine thyroid extract. Patient's TSH was elevated, however her free T4 and T3 are within normal limits. Therefore, patient does not require any thyroid replacement at this time. Patient states that since she is Weight / BMI Weight Weight: 74.2 kg Body Mass Index (BMI) 28.0 ABG / Lab / Microbiology Data Result Diagrams: 03/01/23 04:30 03/01/23 04:30 Laboratory: Laboratory Results - last 24 hr 02/28/23 15:20: WBC 6.5, RBC 4.13 L, Hgb 12.0, Hct 37.0, MCV 89.6, MCH 29.1, MCHC 32.4, RDW Std Deviation 42.0, RDW Coeff of Derek 12.9, Plt Count 231, MPV 11.6, Immature Gran % (Auto) 0.200, Neut % (Auto) 68.3, Lymph % (Auto) 22.4, [place] % (Auto) 7.1, Eos % (Auto) 1.5, Baso % (Auto) 0.5, Absolute Neuts (auto) 4.5, Absolute Lymphs (auto) 1.46, Nucleated RBC % 0 02/28/23 15:20: Sodium 139, Potassium 3.9, Chloride 106, Carbon Dioxide 28.0, Anion Gap 5, BUN 22 H, Creatinine 0.84, Estim Creat Clear Calc 67.65, Est GFR (MDRD) Af Amer 91, Est GFR (MDRD) Non-Af 75, BUN/Creatinine Ratio 26.1 H, Glucose 101, Calcium 8.9, Troponin I High Sens 4 02/28/23 17:35: Troponin I High Sens 5 03/01/23 04:30: WBC 3.9 L, RBC 4.01 L, Hgb 11.5 L, Hct 36.5 L, MCV 91.0, MCH 28.7, MCHC 31.5 L, RDW Std Deviation 43.8, RDW Coeff of Derek 13.2, Plt Count 202, MPV 11.8, Immature Gran % (Auto) 0.000, Neut % (Auto) 48.0, Lymph % (Auto) 39.2, [place] % (Auto) 9.2, Eos % (Auto) 3.1, Baso % (Auto) 0.5, Absolute Neuts (auto) 1.9 L, Absolute Lymphs (auto) 1.54, Nucleated RBC % 0 03/01/23 04:30: Sodium 144, Potassium 3.6, Chloride 115 H, Carbon Dioxide 24.0, Anion Gap 5, BUN 17, Creatinine 0.68, Estim Creat Clear Calc 83.57, Est GFR (MDRD) Af Amer 117, Est GFR (MDRD) Non-Af 96, BUN/Creatinine Ratio 25.0 H, Glucose 108 H, Calcium 7.7 L, TSH 9.54 H 03/01/23 04:30: Free T4 1.04, Free T3 pg/dL 3.0 Radiography Diagnostic Testing: Radiology Impression Chest X-Ray 02/28/23 15:45 IMPRESSION: Normal x-ray examination of the chest. Electronically Signed: Shahid Chowdhury DO at 16:47 EDT Reading Location ID and State: [address] [place] [address] Tel [phone], Service support , Chest/Abdomen/Pelvis CTA 02/28/23 16:06 IMPRESSION: 1. No evidence of aortic dissection aneurysm or stricture. 2. No acute cardiopulmonary disease. 3. Hepatomegaly with fatty infiltration. 4. Otherwise normal CT of the abdomen and pelvis. Normal contrast-enhanced CT of the chest. Normal contrast-enhanced CT of the abdomen and pelvis. Electronically Signed: Shahid Chowdhury DO at 16:52 EDT Reading Location ID and State: [address] [place] [address] Tel [phone], Service support , Echocardiogram 03/01/23 05:55 Interpretation Summary The estimated ejection fraction is 55-60 %. Normal LV systolic function No previous echo to compare Ordering Physician: Maria Elena Guthrie Referring Physician: Taina Zimmerman M.D. Performed By: Seth Obrien RCS D/C Instructions Discharge Diet: No restrictions Call your doctor if you observe: Dizziness and Fainting spells Meaningful Use Info Meaningful Use Diagnoses (Choose all that apply): None applicable Discharge Plan Admission Admit Date/Time: 02/28/23 19:07 Primary Reason for Your Visit: bradycardia Attending Provider: Long Brush Primary Care Provider: Taina Zimmerman Consulting Providers: Jesu Ivy ; Mraia Elena Guthrie Instructions Additional Instructions / Restrictions: You had a low heart rate. It did get better without treatment. Also, no evidence of a heart attack. You TSH was elevated, but your thyroid hormones (Free T4 and free T3) were normal. You do not need treatment for your thyroid at this time. Please return to the ED if you have recurrent dizziness, fainting spells. Please follow up with cardiology for further cardiac testing. Discharge Orders/Prescriptions Referrals / Follow Up: [facility] [Provider Group] - Within 2 Weeks Taina Zimmerman DO [Primary Care Provider] - Within 2 Weeks Disposition Disposition (needs filled in before D/C Order can be placed): Home, Self Care Charges/Coding Visit Charges Inpatient E&M: 80198 Disch Hosp
[2023-03-01 14:37] VITALS: BP 147/82; PULSE 52; RESP 18; TEMP 36.2; O2SAT 100
--- NOTE | 2023-03-01 14:45 | CHAPLAIN ---
Type of Pastoral Visit _x__ Initial Visit ___ Follow-up Visit ___ On-call Visit ___ General Patient Visit ___ Spiritual Assessment ___ Family Conference ___ Bereavement ___ Rapid Response ___ Code Blue ___ Other (describe below) Pastoral Care Referral From _x__ Patient ___ Family ___ Nurse ___ Physician ___ Training Program Manager ___ Skein Bleacher ___ Other (describe below) Sacrament/Intervention _x__ Active listening ___ Anointing ___ Scientology ___ Bereavement ___ Communion ___ Cady exploration ___ _x__ Life review _x__ Prayer ___ Reconciliation ___ Sacrament of Sick ___ Supportive presence ___ Wedding ___ Other (describe below) Pastoral Comments
== END 2023-03-01 15:13 | disposition home or self-care (01) | DRG 311 ==
LOC: ED 18:32 → PCU 20:35
PROVIDERS: Admitting Provider Student in an Organized Health Care Education/Training Program; Emergency Provider Student in an Organized Health Care Education/Training Program; PCP Internal Medicine
DX: I20.8 Other forms of angina pectoris (principal); E78.00 Pure hypercholesterolemia, unspecified; I95.9 Hypotension, unspecified; R00.1 Bradycardia, unspecified; Z20.822 Contact with and (suspected) exposure to COVID-19; R06.00 Dyspnea, unspecified; R07.89 Other chest pain
CPT/HCPCS: 36415; 71045; 71275; 74174; 80048; 84439; 84443; 84481; 84484; 85025; 93005; 93306; 97802; 99285; J7030; Q9967; A4216